=== PATIENT | female | born 1975 | race Hispanic/Latino ===

== ENCOUNTER 2019-09-01 15:29 | Emergency (ER) | payer MEDICARE ==
[2019-09-01 16:04] VITALS: BP 135/88
--- NOTE | 2019-09-01 16:11 | Event Note ---
ED Screening Note Date of service: 09/01/19 Time: 16:09 ED Screening Note: 43 y o f presents to Ed for referral for psychiatrist because she has not been on her medication for a couple of She denies SI/HI PMH: depression, bipolar, schizophrenia and manic depression This initial assessment/diagnostic orders/clinical plan/treatment(s) is/are subject to change based on patients health status, clinical progression and re- assessment by fellow clinical providers in the ED. Further treatment and workup at subsequent clinical providers discretion. Patient/guardian urged not to elope from the ED as their condition may be serious if not clinically assessed and managed. Initial orders include: discussed with pt to follow up with psychiatrist Pt is in no acute distress
== END 2019-09-01 17:37 | disposition left against medical advice (07) ==
LOC: ED 15:29
DX: F20.9 Schizophrenia, unspecified (principal); F31.9 Bipolar disorder, unspecified
CPT/HCPCS: 99282